=== PATIENT | female | born 1995 | race Caucasian/White ===

== ENCOUNTER 2017-05-20 05:17 | Outpatient (CLI) | payer OTHER ==
[2017-05-20 06:01] VITALS: BP 118/77
== END 2017-05-20 06:39 | disposition home or self-care (01) ==
LOC: LDOP 05:17
PROVIDERS: ATTEND Obstetrics & Gynecology
DX: O26.893 Other specified pregnancy related conditions, third trimester (principal); R10.9 Unspecified abdominal pain; Z3A.36 36 weeks gestation of pregnancy
CPT/HCPCS: 59025; 89060; 99211; G0463; Q0114

== ENCOUNTER 2017-05-24 22:23 | Outpatient (CLI) | payer OTHER ==
[~2017-05-24] VITALS: Ht 167.6 cm; Wt 71.0 kg
== END 2017-05-25 00:25 | disposition home or self-care (01) ==
LOC: LDOP 22:23
PROVIDERS: ATTEND Obstetrics & Gynecology
DX: O26.893 Other specified pregnancy related conditions, third trimester (principal); R10.9 Unspecified abdominal pain; Z3A.37 37 weeks gestation of pregnancy
CPT/HCPCS: 59025; 99211; G0463

== ENCOUNTER 2017-06-11 06:08 | Inpatient (IN) | payer OTHER ==
[~2017-06-11] VITALS: Ht 167.6 cm; Wt 72.3 kg
[~2017-06-11 06:08] MED LIST: FENTANYL/BUPIV./NS/PF 250 ML EPIDCONT ONE; LIDOCAINE/PF 1.5%-EPI 1:200K, 30ML ONE
[2017-06-11] MEDS ORDERED: D5%-LACTATED RINGERS 1,000 ML IV SCH (06:10)
[2017-06-11] MEDS: LACTATED RINGERS 1,000 ML IV SCH ×3 (06:10→13:55)
[2017-06-11] MEDS ORDERED: OXYTOCIN 30U/ 0.9% NaCL 500ML 500 ML IV ONE (06:10)
[2017-06-11] MEDS ORDERED: OXYTOCIN 30U/ 0.9% NaCL 500ML 500 ML IV PRN (06:10)
[2017-06-11] MEDS ORDERED: NITR100C56 PO (06:15)
[2017-06-11] MEDS ORDERED: OXYTOCIN 30U/ 0.9% NaCL 500ML 500 ML ONE (06:16)
[2017-06-11] MEDS ORDERED: MISOPROSTOL 200 MCG TABLET ONE (06:16)
[2017-06-11] MEDS ORDERED: SODIUM CITRATE/CITRIC ACID 30 ML UDC PO PRN (06:30)
[2017-06-11] MEDS ORDERED: FENTANYL PF 100 MCG/2ML IVPush PRN (06:30)
[2017-06-11] MEDS ORDERED: FENTANYL PF 100 MCG/2ML IV PRN (06:30)
[2017-06-11] MEDS ORDERED: ONDANSETRON 2MG/ML, 2ML IVPush PRN (06:30)
[2017-06-11] MEDS ORDERED: ALUMINUM/MAG/SIMETHICONE 30 ML UDC PO PRN (06:30)
[2017-06-11] MEDS ORDERED: MISOPROSTOL 25 MCG TABLET VG PRN (06:30)
[2017-06-11] MEDS ORDERED: MISOPROSTOL 25 MCG TABLET ONE (06:39)
[2017-06-11] MEDS ORDERED: FENTANYL/BUPIV./NS/PF 250 ML EPIDCONT ONE ×2 (13:38→13:42)
[2017-06-11] MEDS ORDERED: LIDOCAINE/PF 1.5%-EPI 1:200K, 30ML ONE (13:42)
[2017-06-11] MEDS ORDERED: LIDOCAINE 1%, 20ML ONE (13:42)
[2017-06-11] MEDS ORDERED: OXYTOCIN 30U/ 0.9% NaCL 500ML 500 ML IV SCH (15:37)
[2017-06-11] MEDS ORDERED: FENTANYL/BUPIV./NS/PF 250 ML EPIDCONT SCH (15:40)
[2017-06-11] MEDS ORDERED: LACTATED RINGERS 1,000 ML IV SCH (15:40)
[2017-06-11] MEDS ORDERED: EPHEDRINE 50 MG/ML, 1ML IVPush PRN (16:00)
[2017-06-11] MEDS ORDERED: METHYLERGONOVINE 0.2 MG/ML IM PRN (16:00)
[2017-06-11] MEDS ORDERED: MISOPROSTOL 200 MCG TABLET PR PRN (16:00)
[2017-06-11] MEDS ORDERED: DOCUSATE 100 MG CAPSULE PO PRN (16:00)
[2017-06-11] MEDS ORDERED: OXYcodone/APAP 5/325MG TABLET PO PRN ×2 (16:00)
[2017-06-11] MEDS ORDERED: NALOXONE 0.4 MG/ML, 1ML IVPush PRN (16:00)
[2017-06-11] MEDS ORDERED: LACTATED RINGERS 1,000 ML IVBOLUS PRN (16:00)
[2017-06-11] MEDS ORDERED: ACETAMINOPHEN 325 MG TABLET PO PRN (16:00)
[2017-06-11] MEDS ORDERED: ONDANSETRON 2MG/ML, 2ML IV PRN (16:00)
[2017-06-11] MEDS ORDERED: IBUPROFEN 600 MG TABLET ONE (16:08)
[2017-06-11] MEDS: IBUPROFEN 600 MG TABLET PO PRN ×2 (16:09→22:24)
[2017-06-11 16:50] VITALS: BP 112/73
[2017-06-11 20:00] VITALS: BP 126/68
[2017-06-12 00:35] VITALS: BP 131/81
[2017-06-12] MEDS: IBUPROFEN 600 MG TABLET PO PRN (05:03)
[2017-06-12 05:10] VITALS: BP 116/67
[2017-06-12 07:40] VITALS: BP 117/73
[2017-06-12] MEDS ORDERED: PRENATAL VIT/IRON/FA 1 EACH TABLET PO SCH (09:00)
== END 2017-06-12 15:34 | disposition home or self-care (01) | DRG 775 ==
LOC: LDIP 06:08 → 2NW 16:50
PROVIDERS: ADMIT Obstetrics & Gynecology; ATTEND Obstetrics & Gynecology
PROC: 10E0XZZ Delivery of Products of Conception, External Approach (ICD-10-PCS; principal; 2017-06-11)
PROC: 10907ZC Drainage of Amniotic Fluid, Therapeutic from Products of Conception, Via Natural or Artificial Opening (ICD-10-PCS; 2017-06-11)
PROC: 3E033VJ Introduction of Other Hormone into Peripheral Vein, Percutaneous Approach (ICD-10-PCS; 2017-06-11)
PROC: 3E0P7GC Introduction of Other Therapeutic Substance into Female Reproductive, Via Natural or Artificial Opening (ICD-10-PCS; 2017-06-11)
PROC: 3E0R3CZ (ICD-10-PCS; 2017-06-11)
PROC: 00HU33Z Insertion of Infusion Device into Spinal Canal, Percutaneous Approach (ICD-10-PCS; 2017-06-11)
DX: O69.81X0 Labor and delivery complicated by cord around neck, without compression, not applicable or unspecified (principal); Z37.0 Single live birth; Z3A.39 39 weeks gestation of pregnancy; Z90.89 Acquired absence of other organs
CPT/HCPCS: 36415; 85025; 86850; 86900; J3490; J2590; J3010; J7120